=== PATIENT | female | born 1960 | race Caucasian/White ===

== ENCOUNTER 2023-12-22 00:29 | Day surgery (SDC) | payer MEDICARE, OTHER, SELFPAY ==
[2023-12-09 14:35] VITALS: BMI 20.7
--- NOTE | 2023-12-18 10:11 | SUR.PREOP ---
Patient called regarding upcoming procedure. Reviewed preop instructions, appointment times, and procedure prep.
[2023-12-22 13:12] VITALS: BP 116/67; PULSE 101; RESP 16; TEMP 36.2; O2SAT 100
[2023-12-22] MEDS: LACTATED RINGERS 1,000 ML 150 ML IV CONT (13:30)
--- NOTE | 2023-12-22 13:58 | P.PNAN_ITS ---
Anes - Initial Pre Proc Eval Procedure: Operation Date: 12/22/23 14:30 Proposed Procedures p Colonoscopy - Javon Kyle MD Date/Time: 12/22/23 13:58 Surgeon: Javon Kyle MD Pre Op Diagnosis: Change in bowel habit Patient Data Age: 63 Gender: F Height: 1.65 m Weight: 50.1 kg Last Vital Signs Temp 97.1 F L 12/22/23 13:12 Pulse 101 H 12/22/23 13:12 Resp 16 12/22/23 13:12 BP 116/67 12/22/23 13:12 Pulse Ox 100 12/22/23 13:12 O2 Del Method Room Air 12/22/23 13:12 Allergies Allergy/AdvReac Type Severity Reaction Status Date / Time codeine Allergy Vomiting Verified 12/22/23 13:15 Home Medications Medication Instructions Recorded Confirmed Type amitriptyline 50 mg tablet 25 mg PO HS 12/09/23 12/09/23 History atorvastatin 20 mg tablet 20 mg PO DAILY 12/09/23 12/09/23 History carbamazepine 200 mg tablet 100 mg PO BID 12/09/23 12/22/23 History gabapentin 300 mg capsule 600 mg PO BID 12/09/23 12/22/23 History hydrocodone 10 mg-acetaminophen 1 tablet PO Q8H PRN Pain 12/09/23 12/09/23 History 325 mg tablet lidocaine 5 % topical patch 1 patch topical PRN PRN Pain 12/09/23 12/09/23 History omeprazole 40 mg capsule,delayed 40 mg PO DAILY 12/09/23 12/22/23 History release valsartan 160 mg tablet 160 mg PO DAILY 12/09/23 12/22/23 History Patient hx anesthesia problems: none Family hx anesthesia problems: none Results Review: All pre-operative results and documents have been reviewed as part of the pre- operative evaluation. PMFSH Social History Social History Smoking packs per day: 0.75 Smoking cigarettes per day: 15.0 Years smoked: 50 Smoking pack-years: 37.50 Smoking status: Current every day smoker Tobacco type: cigarettes Additional smoking assessment comments: CUTTING BACK NOW DOWN TO 7 A DAY Alcohol intake: current Substance use: never Substance use type: does not use Living arrangements: with family Spiritual care concerns: No Anes - Eval Final PreProcedure Day of Procedure 12/22/23 13:58 Patient weight: normal Heart: regular rate and rhythm Lungs: clear to auscultation Airway: Mallampati scale class II Neurological: alert and oriented Last oral intake: >/= 8 hours ASA classification: III Emergent: no Anesthetic plan: proceed Anesthesia type and monitoring: general GIVS and standard monitoring Results Review: All pre-operative results and documents have been reviewed as part of the pre- operative evaluation. Informed Consent: The patient's anesthetic plan and its attendant risks and benefits were discussed with the patient/family/POA. Questions were solicited and answers provided to the satisfaction of the patient/family/POA.
--- NOTE | 2023-12-22 14:21 | PM.HPGS ---
History of Present Illness History of Present Illness Consent: Risks, benefits, and alternatives have been discussed and questions answered. Patient agrees to proceed with procedure. Chief complaint: Change in bowel habit Narrative: Cathie Cook is a 63 year old female with change bowel habits mostly diarrhea, imodium did not work, last colonoscopy 8 years ago Review of Systems Review of Systems: All systems reviewed & are unremarkable except as noted in HPI and below PMFSH Past Medical History Medical History (Updated 12/22/23 @ 14:24 by Javon Kyle MD) Diarrhea Social History Social History Smoking packs per day: 0.75 Smoking cigarettes per day: 15.0 Years smoked: 50 Smoking pack-years: 37.50 Smoking status: Current every day smoker Tobacco type: cigarettes Additional smoking assessment comments: CUTTING BACK NOW DOWN TO 7 A DAY Alcohol intake: current Substance use: never Substance use type: does not use Living arrangements: with family Spiritual care concerns: No Meds Home Medications and Allergies Home Medications Medication Instructions Recorded Confirmed Type amitriptyline 50 mg tablet 25 mg PO HS 12/09/23 12/09/23 History atorvastatin 20 mg tablet 20 mg PO DAILY 12/09/23 12/09/23 History carbamazepine 200 mg tablet 100 mg PO BID 12/09/23 12/22/23 History gabapentin 300 mg capsule 600 mg PO BID 12/09/23 12/22/23 History hydrocodone 10 mg-acetaminophen 1 tablet PO Q8H PRN Pain 12/09/23 12/09/23 History 325 mg tablet lidocaine 5 % topical patch 1 patch topical PRN PRN Pain 12/09/23 12/09/23 History omeprazole 40 mg capsule,delayed 40 mg PO DAILY 12/09/23 12/22/23 History release valsartan 160 mg tablet 160 mg PO DAILY 12/09/23 12/22/23 History Allergies Allergy/AdvReac Type Severity Reaction Status Date / Time codeine Allergy Vomiting Verified 12/22/23 13:15 Vital Signs Vital Signs - 24 hr 12/22/23 13:12 Temperature 97.1 F L Pulse Rate 101 H Respiratory Rate 16 Blood Pressure 116/67 Pulse Oximetry 100 Oxygen Delivery Room Air Exam Const: General: comfortable and no acute distress HENMT: Face/Nose/Sinus: Normal nares present Eyes: General: appearance normal, both eyes and all related structures Neck: Neck: no JVD Resp: Auscultation: clear to auscultation bilaterally Cardio: Rate: regular rate Rhythm: regular rhythm GI: Inspection: non-distended GI Palp: Yes Soft to palpation Skin: General skin exam: normal color Neuro: General: gait normal Speech: normal speech Extrem: General: normal to inspection Psych: Mental Status: mental status grossly normal Assessment and Plan Assessment and plan (1) Diarrhea: Code(s): R19.7 - Diarrhea, unspecified Status: Acute Assessment and Plan: colonoscopy with random biopsies to check for colitis
[2023-12-22 14:36] VITALS: BP 132/92; PULSE 70; RESP 14; O2SAT 100
[2023-12-22 14:46] VITALS: BP 135/59; PULSE 70; RESP 20; O2SAT 100
[2023-12-22 14:56] VITALS: BP 160/71; PULSE 78; RESP 20; O2SAT 100
== END 2023-12-22 15:08 | disposition home or self-care (01) ==
PROVIDERS: PCP Internal Medicine; Visit Provider Internal Medicine Gastroenterology
PROC: 0DJD8ZZ Inspection of Lower Intestinal Tract, Via Natural or Artificial Opening Endoscopic (ICD-10-PCS; CPT 45378; principal; 2023-12-22 14:30)
DX: R19.7 Diarrhea, unspecified (principal); F17.210 Nicotine dependence, cigarettes, uncomplicated
CPT/HCPCS: 45380; 88305; J2704; J7120